=== PATIENT | male | born 1950 | race Caucasian/White ===

== ENCOUNTER 2020-08-06 19:19 | Inpatient (IN) | payer BC, MEDICARE ==
[~2020-08-06] VITALS: Ht 182.9 cm; Wt 123.6 kg
[2020-08-06 19:40] LABS: BASO % 1 % (0-3); EOS # 0.1 x10^3/uL (0.0-0.7); EOS % 2 % (0-3); HEMATOCRIT 41.5 % (39.0-53.0); HEMOGLOBIN 14.2 g/dL (13.0-17.5); LYMPH # 1.4 x10^3/uL (1.0-4.8); LYMPH % 23 % (24-48); MEAN CORPUSCULAR HEMOGLOBIN 32 pg (25-35); MEAN CORPUSCULAR HGB CONC 34 g/dL (31-37); MEAN CORPUSCULAR VOLUME 92 fL (79-100); MONO # 0.5 x10^3/uL (0.0-1.1); MONO % 7 % (0-9); NEUT # 4.3 x10^3/uL (1.8-7.7); NEUT % 68 % (31-73); PLATELET COUNT 208 x10^3/uL (140-400); RED BLOOD COUNT 4.51 x10^6/uL (4.30-5.70); RED CELL DISTRIBUTION WIDTH 13.8 % (11.5-14.5); WHITE BLOOD COUNT 6.4 x10^3/uL (4.0-11.0)
[2020-08-06 19:48] LABS: CALCIUM 9.7 mg/dL (8.5-10.1); GFR 74.1; POTASSIUM 4.2 mmol/L (3.5-5.1)
--- NOTE | 2020-08-06 20:53 | RAD ---
CHEST PA LATERAL INDICATION: chest pain / Spl. Instructions: / History: . COMPARISON STUDY: None. FINDINGS: Lungs: Normal lung volume. No pulmonary mass or consolidation. The tracheobronchial tree and hilar structures are normal. Pleura: No pleural effusion or pneumothorax. Heart and Mediastinum: Cardiomegaly. Tortuous atherosclerotic aorta. Bones: Degenerative changes of the spine. IMPRESSION: No acute cardiopulmonary process. Electronically signed by: Rizwan Wolfe MD (08/06/2020 8:50 PM) [facility]
[2020-08-06] MEDS ORDERED: ASPIRIN CHEWABLE 81 MG TABLET. PO ONE (22:00)
[2020-08-06] MEDS ORDERED: DOCUSATE SODIUM 100 MG CAPSULE. PO PRN (22:00)
[2020-08-06] MEDS ORDERED: ENOXAPARIN 40 MG/0.4 ML SYRINGE. SQ SCH (22:00)
[2020-08-06] MEDS ORDERED: guaiFENesin ORAL 200 MG/10 ML LIQUID. PO PRN (22:00)
[2020-08-06] MEDS ORDERED: ONDANSETRON PF 4 MG/2 ML VIAL. IV PRN (22:00)
[2020-08-06] MEDS ORDERED: ACETAMINOPHEN 325 MG TABLET. PO PRN (22:00)
[2020-08-06 23:55] VITALS: BP 121/84
[2020-08-07] MEDS ORDERED: LISI-334 PO (01:26)
[2020-08-07] MEDS ORDERED: ASPI325T8 PO (01:26)
[2020-08-07] MEDS ORDERED: TEST5GEL TP (01:26)
[2020-08-07] MEDS ORDERED: TRIA1TAB3 PO (01:26)
[2020-08-07 03:08] VITALS: BP 113/71
--- NOTE | 2020-08-07 03:51 | PHYS DOC ---
Past Medical History Past Medical History: Hypertension Past Surgical History: Other Additional Past Surgical Histo: BILATERAL KNEE REPLACEMENTS Smoking Status: Never Smoker Alcohol Use: Occasionally General Adult EDM: Chief Complaint: CHEST PAIN HPI: HPI: Patient is 70-year-old male who presents to the emergency room complaining of substernal chest pain with radiation into his right arm and back that started earlier this afternoon. He states that he laid down and took a nap. When he woke up it was somewhat better. He then realized it was getting worse again and that he was getting progressively more ill. He then called 911 for an ambulance. He denies any diaphoresis, nausea, shortness of breath with this. Review of Systems: Review of Systems: General: Denies fever, chills, sweats, fatigue Eyes: Denies drainage, blurred vision, eye redness HENT: Denies rhinorrhea, sore throat, earache Respiratory: Denies cough, shortness of breath, wheezing Cardiac: Denies edema, palpitations. Reports chest pain GI: Denies abdominal pain, Nausea, vomiting MSK: Denies neck pain. Reports back pain Skin: Denies rash, jaundice Neuro: Denies headache, dizziness Psychiatric: Denies SI/HI Heart Score: HEART Score for Chest Pain: HEART Score for Chest Pain Response (Comments) Value History Highly Suspicious 2 ECG Nonspecific Repolarizatio 1 Age > 65 2 Risk Factors 1 or 2 Risk Factors 1 Troponin >1-<3x Normal Limit 1 Total 7 Risk Factors: Risk Factors: DM, Current or recent (<one month) smoker, HTN, HLP, family history of CAD, obesity. Risk Scores: Score 0 - 3: 2.5% MACE over next 6 weeks - Discharge Home Score 4 - 6: 20.3% MACE over next 6 weeks - Admit for Clinical Observation Score 7 - 10: 72.7% MACE over next 6 weeks - Early Invasive Strategies Allergies: Allergies: Allergies Coded Allergies Type Severity Reaction Last Updated Verified No Known Drug Allergies 08/06/20 No Physical Exam: PE: General: Awake, alert, NAD. Well Nourished, well hydrated. Cooperative HEENT: Atraumatic, EOMI, PERRL, airway patent, moist oral mucosa Neck: Supple, trachea midline Respiratory: CTA bilaterally, normal effort, no wheezing/crackles CV: RRR, no murmur, cap refill <2 GI: Soft, nondistended, nontender, no masses MSK: No obvious deformities Skin: Warm, dry, intact Neuro: A&O x3, speech NL, sensory and motor grossly intact, no focal deficits Psych: Normal affect, normal mood, not suicidal or homicidal Current Patient Data: Labs: Laboratory Tests Test 08/06/20 19:30 08/07/20 00:51 White Blood Count 6.4 x10^3/uL (4.0-11.0) Red Blood Count 4.51 x10^6/uL (4.30-5.70) Hemoglobin 14.2 g/dL (13.0-17.5) Hematocrit 41.5 % (39.0-53.0) Mean Corpuscular Volume 92 fL (79-100) Mean Corpuscular Hemoglobin 32 pg (25-35) Mean Corpuscular Hemoglobin Concent 34 g/dL (31-37) Red Cell Distribution Width 13.8 % (11.5-14.5) Platelet Count 208 x10^3/uL (140-400) Neutrophils (%) (Auto) 68 % (31-73) Lymphocytes (%) (Auto) 23 % (24-48) L Monocytes (%) (Auto) 7 % (0-9) Eosinophils (%) (Auto) 2 % (0-3) Basophils (%) (Auto) 1 % (0-3) Neutrophils # (Auto) 4.3 x10^3/uL (1.8-7.7) Lymphocytes # (Auto) 1.4 x10^3/uL (1.0-4.8) Monocytes # (Auto) 0.5 x10^3/uL (0.0-1.1) Eosinophils # (Auto) 0.1 x10^3/uL (0.0-0.7) Basophils # (Auto) 0.0 x10^3/uL (0.0-0.2) Sodium Level 138 mmol/L (136-145) Potassium Level 4.2 mmol/L (3.5-5.1) Chloride Level 101 mmol/L (98-107) Carbon Dioxide Level 28 mmol/L (21-32) Anion Gap 9 (6-14) Blood Urea Nitrogen 19 mg/dL (8-26) Creatinine 1.0 mg/dL (0.7-1.3) Estimated GFR (Cockcroft-Gault) 74.1 Glucose Level 81 mg/dL (70-99) Calcium Level 9.7 mg/dL (8.5-10.1) Troponin I Quantitative 0.146 ng/mL (0.000-0.055) 1.104 ng/mL (0.000-0.055) Laboratory Tests 08/06/20 19:30 Laboratory Tests 08/06/20 19:30 Vital Signs: Vital Signs Date Time Temp Pulse Resp B/P (MAP) Pulse Ox O2 Delivery O2 Flow Rate FiO2 08/07/20 03:08 98.2 64 19 113/71 (85) 100 Room Air 98.2 EKG: EKG: [] Radiology/Procedures: Radiology/Procedures: [] Course & Med Decision Making: Course & Med Decision Making Pertinent Labs and Imaging studies reviewed. (See chart for details) Patient is a 70 year-old male who presents to the Emergency Room complaining of chest pain with radiation to the back and right arm. History is significant for worsening substernal chest pain. At this time, given patient's risk factors and story there is concern for possible cardiac pathology. EKG was ordered and shows some mild ST depression. At this time there is no signs of STEMI, pericarditis, or unstable arrthymia on EKG. Patient has received aspirin today. CBC, BMP, troponin, CXR were ordered to evaluate for causes of chest pain including ACS, anemia, electrolyte abnormalities that can lead to arrhythmias, PTX, pneumonia, pneumomediastinum. Patient does not have any abdominal tenderness that would suggest pancreaititis or cholecystitis and does not need an abdominal work up at this time. Patient's HEART score is 7 placing the patient at moderate risk. Patient will be admitted for further care and evaluation. Dragon Disclaimer: Dragon Disclaimer: This electronic medical record was generated, in whole or in part, using a voice recognition dictation system. Departure Departure Impression: Primary Impression: Chest pain Disposition: ADMITTED INPATIENT Condition: GOOD Referrals: UNKNOWN PCP NAME (PCP) Justicifation of Admission Dx: Justifications for Admission: Justification of Admission Dx: Yes NEVA NICOLE MD Aug 07, 2020 03:51
[2020-08-07 07:00] VITALS: BP 124/63
[2020-08-07 07:00] LABS: CALCIUM 9.2 mg/dL (8.5-10.1); CREATININE 0.9 mg/dL (0.7-1.3); GFR 83.7; POTASSIUM 3.7 mmol/L (3.5-5.1)
[2020-08-07 07:21] LABS: BASO % 1 % (0-3); EOS # 0.1 x10^3/uL (0.0-0.7); EOS % 2 % (0-3); HEMATOCRIT 40.4 % (39.0-53.0); HEMOGLOBIN 13.7 g/dL (13.0-17.5); LYMPH # 1.4 x10^3/uL (1.0-4.8); LYMPH % 30 % (24-48); MEAN CORPUSCULAR HEMOGLOBIN 31 pg (25-35); MEAN CORPUSCULAR HGB CONC 34 g/dL (31-37); MEAN CORPUSCULAR VOLUME 92 fL (79-100); MONO # 0.4 x10^3/uL (0.0-1.1); MONO % 8 % (0-9); NEUT # 2.7 x10^3/uL (1.8-7.7); NEUT % 60 % (31-73); PLATELET COUNT 187 x10^3/uL (140-400); RED BLOOD COUNT 4.38 x10^6/uL (4.30-5.70); RED CELL DISTRIBUTION WIDTH 13.9 % (11.5-14.5); WHITE BLOOD COUNT 4.6 x10^3/uL (4.0-11.0)
[2020-08-07] MEDS ORDERED: ASPIRIN CHEWABLE 81 MG TABLET. PO SCH (08:00)
--- NOTE | 2020-08-07 08:23 | EKG ---
[facility] [address] [place] [address] Test Date: 2020-08-06 Test Time: 19:23:20 Pat Name: LORETTA DUNCAN Department: Room: Gender: M Ham Doctor: = : 1950 Requested By: NEVA NICOLE Order Number: [id number] Reading MD: Measurements Intervals Holmes Rate: 79 P: -43 DC: 186 QRS: 6 QRSD: 70 T: -3 QT: 354 QTc: 412 Interpretive Statements SINUS RHYTHM R-S TRANSITION ZONE IN V LEADS DISPLACED TO THE RIGHT ST & T ABNORMALITY, CONSIDER INFERIOR ISCHEMIA OR LEFT VENTRICULAR STRAIN ABNORMAL ECG RI6.02 No previous ECG available for comparison
--- NOTE | 2020-08-07 08:50 | PDOC2 ---
WILLIAM MANSFIELD MOLD MOVER 08/07/20 0850: CARDIAC CONSULT DATE OF CONSULT Date of Consult DATE: 08/07/20 TIME: 08:45 REASON FOR CONSULT Reason for Consult: Chest pain REFERRING PHYSICIAN Referring Physician: Dr. Castaneda SOURCE Source: Chart review, Patient HISTORY OF PRESENT ILLNESS HISTORY OF PRESENT ILLNESS This is a 70 yo male who presented secondary to chest pain. Patient reports pain began yesterday morning. Located in high central/right chest. Describes as heaviness. Radiated down his right arm. Took ASA and laid down for a nap. Woke up and pain persisted. Seemed to worsen. Became diaphoretic and slightly dizzy. No shortness of breath, palpitations, or nausea/vomiting. Had call EMS. No recent fevers or illness. No prior h/o CAD. PAST MEDICAL HISTORY Cardiovascular: HTN PAST SURGICAL HISTORY Past Surgical History: Total knee replacement (bilateral ) FAMILY HISTORY Family History: Heart Disease, Hypertension SOCIAL HISTORY Smoke: No ALCOHOL: occassional Drugs: None Lives: with Family ALLERGIES ALLERGIES: Coded Allergies: No Known Drug Allergies (Unverified , 08/06/20) ROS Review of System 14 point ROS conducted with pertinent positives noted above in hPI PHYSICAL EXAM General: Alert, Oriented X3, Cooperative, No acute distress HEENT: Atraumatic, Mucous membr. moist/pink Lungs: Clear to auscultation Heart: Regular rate, Normal S1, Normal S2 Abdomen: Soft, No tenderness Extremities: No edema Skin: No significant lesion Neuro: Normal speech, Sensation intact Psych/Mental Status: Mental status NL, Mood NL MUSCULOSKELETAL: No deformity VITALS/I&O VITALS/I&O: Vital Signs Date Time Temp Pulse Resp B/P (MAP) Pulse Ox O2 Delivery O2 Flow Rate FiO2 08/07/20 07:00 98.1 61 18 124/63 (83) 97 Room Air 98.1 I & O 08/06/20 08/06/20 08/07/20 15:00 23:00 07:00 Intake Total 500 ml Output Total 300 ml Balance 200 ml LABS Lab: Laboratory Tests Test 08/06/20 19:30 08/07/20 00:51 08/07/20 06:00 White Blood Count 6.4 x10^3/uL (4.0-11.0) 4.6 x10^3/uL (4.0-11.0) Red Blood Count 4.51 x10^6/uL (4.30-5.70) 4.38 x10^6/uL (4.30-5.70) Hemoglobin 14.2 g/dL (13.0-17.5) 13.7 g/dL (13.0-17.5) Hematocrit 41.5 % (39.0-53.0) 40.4 % (39.0-53.0) Mean Corpuscular Volume 92 fL (79-100) 92 fL (79-100) Mean Corpuscular Hemoglobin 32 pg (25-35) 31 pg (25-35) Mean Corpuscular Hemoglobin Concent 34 g/dL (31-37) 34 g/dL (31-37) Red Cell Distribution Width 13.8 % (11.5-14.5) 13.9 % (11.5-14.5) Platelet Count 208 x10^3/uL (140-400) 187 x10^3/uL (140-400) Neutrophils (%) (Auto) 68 % (31-73) 60 % (31-73) Lymphocytes (%) (Auto) 23 % (24-48) L 30 % (24-48) Monocytes (%) (Auto) 7 % (0-9) 8 % (0-9) Eosinophils (%) (Auto) 2 % (0-3) 2 % (0-3) Basophils (%) (Auto) 1 % (0-3) 1 % (0-3) Neutrophils # (Auto) 4.3 x10^3/uL (1.8-7.7) 2.7 x10^3/uL (1.8-7.7) Lymphocytes # (Auto) 1.4 x10^3/uL (1.0-4.8) 1.4 x10^3/uL (1.0-4.8) Monocytes # (Auto) 0.5 x10^3/uL (0.0-1.1) 0.4 x10^3/uL (0.0-1.1) Eosinophils # (Auto) 0.1 x10^3/uL (0.0-0.7) 0.1 x10^3/uL (0.0-0.7) Basophils # (Auto) 0.0 x10^3/uL (0.0-0.2) 0.0 x10^3/uL (0.0-0.2) Sodium Level 138 mmol/L (136-145) 138 mmol/L (136-145) Potassium Level 4.2 mmol/L (3.5-5.1) 3.7 mmol/L (3.5-5.1) Chloride Level 101 mmol/L (98-107) 104 mmol/L (98-107) Carbon Dioxide Level 28 mmol/L (21-32) 25 mmol/L (21-32) Anion Gap 9 (6-14) 9 (6-14) Blood Urea Nitrogen 19 mg/dL (8-26) 15 mg/dL (8-26) Creatinine 1.0 mg/dL (0.7-1.3) 0.9 mg/dL (0.7-1.3) Estimated GFR (Cockcroft-Gault) 74.1 83.7 Glucose Level 81 mg/dL (70-99) 89 mg/dL (70-99) Calcium Level 9.7 mg/dL (8.5-10.1) 9.2 mg/dL (8.5-10.1) Troponin I Quantitative 0.146 ng/mL (0.000-0.055) 1.104 ng/mL (0.000-0.055) 1.571 ng/mL (0.000-0.055) Laboratory Tests 08/06/20 19:30 08/07/20 06:00 Laboratory Tests 08/06/20 19:30 08/07/20 06:00 ASSESSMENT/PLAN ASSESSMENT/PLAN 1. Chest pain with typical features 2. NSTEMI; trop highest 1.5 3. Hypertension; controlled 4. Obesity Recommendations Trend trop Lipids, TSH ASA Start heparin gtt Echo to assess LV systolic function Given symptomatology in the setting of NSTEMI, recommend LHC with possible PCI. R/b/a discussed with patient and he is agreeable to proceed. Okay to have light breakfast Supportive care Further pending above ZOE WILKERSON MD 08/07/20 1639: CARDIAC CONSULT ASSESSMENT/PLAN ASSESSMENT/PLAN Pt. seen and examined. Agree with above INSPECTING ENGINEER note. Plan for cardiac cath in a.m. Thanks WILLIAM MANSFIELD APRN Aug 07, 2020 08:50 ZOE WILEKRSON MD Aug 07, 2020 16:39
[2020-08-07 09:22] LABS: CHOLESTEROL/HDL RATIO 3.5
[2020-08-07] MEDS ORDERED: HEPARIN for IV BOLUS 10,000 UNIT/10 ML VIAL. IV ONE (09:45)
[2020-08-07] MEDS ORDERED: HEPARIN for IV BOLUS 10,000 UNIT/10 ML VIAL. IV PRN (09:45)
[2020-08-07] MEDS ORDERED: HEPARIN 25,000UTS/250ML PREMIX 250 ML IV PRN (09:45)
[2020-08-07] MEDS ORDERED: ANTI-COAG MONITOR BY PHARMACY. MC PRN (10:00)
[2020-08-07 10:39] VITALS: BP 129/76
--- NOTE | 2020-08-07 10:44 | PDOC1 ---
"History and Physical Date of Admission Date of Admission 08/07/2020 Identification/Chief Complaint Chief Complaint |My chest hurts Source Source: Chart review, Patient History of Present Illness History of Present Illness Patient is a 70 year old male with past medical history of hypertension who was in his usual state of health until the day of his admission when he presented precordaiol pain that he describes as a pressure like sensation with no radiation to the neck or arms. Patient denies cough sputum production no fever or chills, no sensation of impending doom associated with the discomfort. Patient denies shortnes of breath no PND, no palpitations, no nausea vomiting or diarrhea. he denies having similar symptoms in the past, patient denies recent dietary transgression, no recent illness and no sick contacts have been reported. At the time of this note the patient is in no apparent distress, no further chest pain has been reported, plan of care discussed in detail. All concerns addressed to the best of my abilities. Past Medical History Cardiovascular: HTN Past Surgical History Past Surgical History: Total knee replacement (bilateral ) Family History Family History: Heart Disease, Hypertension Social History Smoke: No ALCOHOL: occassional Drugs: None Current Problem List Problem List Problems Medical Problems: (1) Chest pain Status: Acute Current Medications Current Medications Current Medications Medications (Trade) Dose Ordered Sig/Yvette Start Time Stop Time Status Last Admin Dose Admin Acetaminophen (Tylenol) 650 mg PRN Q4HRS PRN 08/06/20 22:00 Aspirin (Aspirin Chewable) 81 mg [id number] 08/07/20 08:00 08/07/20 08:46 81 MG Docusate Sodium (Colace) 100 mg PRN BID PRN 08/06/20 22:00 Enoxaparin Sodium (Lovenox 40mg Syringe) 40 mg Q24H 08/06/20 22:00 08/07/20 09:45 DC Guaifenesin (Robitussin) 200 mg PRN Q4HRS PRN 08/06/20 22:00 Heparin Sodium (Porcine) (Heparin Sodium) 3,250 unit PRN Q6HRS PRN 08/07/20 09:45 Heparin Sodium/ Dextrose 250 ml @ 0 mls/hr CONT PRN 08/07/20 09:45 08/07/20 10:16 15.7 MLS/HR Info (Anti-Coagulation Monitoring By Pharmacy) 1 each PRN DAILY PRN 08/07/20 10:00 Morphine Sulfate (Morphine Sulfate) 2 mg PRN Q2HR PRN 08/06/20 22:00 Nitroglycerin (Nitrostat) 0.4 mg PRN Q5MIN PRN 08/06/20 22:00 Ondansetron HCl (Zofran) 4 mg PRN Q4HRS PRN 08/06/20 22:00 Allergies Allergies Allergies Coded Allergies Type Severity Reaction Last Updated Verified No Known Drug Allergies 08/06/20 No ROS Review of System CONSTITUTIONAL: No fever or chills EYES: No recent changes SKIN: No rash or itching CARDIOVASCULAR: No chest pain, syncope, palpitations, or edema RESPIRATORY: No SOB or cough GASTROINTESTINAL: No nausea, vomiting or abdominal pain NEUROLOGICAL: No headaches or weakness ENDOCRINE: No cold or heat intolerance GENITOURINARY: No urgency or frequency of urination MUSCULOSKELETAL: No back pain or joint pain LYMPHATICS: No enlarged lymph nodes PSYCHIATRIC: No anxiety or depression Physical Exam Physical Exam GEN.: No apparent distress. Alert and oriented. HEENT: Head is normocephalic, atraumatic NECK: Supple. LUNGS: Clear to auscultation. HEART: RRR, S1, S2 present. Peripheral pulses intact ABDOMEN: Soft, nontender. Positive bowel sounds. EXTREMITIES: Without any cyanosis. NEUROLOGIC: Normal speech, normal tone PSYCHIATRIC: Normal affect, normal mood. SKIN: No ulcerations Vitals Vitals Vital Signs Date Time Temp Pulse Resp B/P (MAP) Pulse Ox O2 Delivery O2 Flow Rate FiO2 08/07/20 08:00 Room Air 08/07/20 07:00 98.1 61 18 124/63 (83) 97 98.1 Labs Labs Laboratory Tests Test 08/06/20 19:30 08/07/20 00:51 08/07/20 06:00 White Blood Count 6.4 x10^3/uL (4.0-11.0) 4.6 x10^3/uL (4.0-11.0) Red Blood Count 4.51 x10^6/uL (4.30-5.70) 4.38 x10^6/uL (4.30-5.70) Hemoglobin 14.2 g/dL (13.0-17.5) 13.7 g/dL (13.0-17.5) Hematocrit 41.5 % (39.0-53.0) 40.4 % (39.0-53.0) Mean Corpuscular Volume 92 fL (79-100) 92 fL (79-100) Mean Corpuscular Hemoglobin 32 pg (25-35) 31 pg (25-35) Mean Corpuscular Hemoglobin Concent 34 g/dL (31-37) 34 g/dL (31-37) Red Cell Distribution Width 13.8 % (11.5-14.5) 13.9 % (11.5-14.5) Platelet Count 208 x10^3/uL (140-400) 187 x10^3/uL (140-400) Neutrophils (%) (Auto) 68 % (31-73) 60 % (31-73) Lymphocytes (%) (Auto) 23 % (24-48) 30 % (24-48) Monocytes (%) (Auto) 7 % (0-9) 8 % (0-9) Eosinophils (%) (Auto) 2 % (0-3) 2 % (0-3) Basophils (%) (Auto) 1 % (0-3) 1 % (0-3) Neutrophils # (Auto) 4.3 x10^3/uL (1.8-7.7) 2.7 x10^3/uL (1.8-7.7) Lymphocytes # (Auto) 1.4 x10^3/uL (1.0-4.8) 1.4 x10^3/uL (1.0-4.8) Monocytes # (Auto) 0.5 x10^3/uL (0.0-1.1) 0.4 x10^3/uL (0.0-1.1) Eosinophils # (Auto) 0.1 x10^3/uL (0.0-0.7) 0.1 x10^3/uL (0.0-0.7) Basophils # (Auto) 0.0 x10^3/uL (0.0-0.2) 0.0 x10^3/uL (0.0-0.2) Sodium Level 138 mmol/L (136-145) 138 mmol/L (136-145) Potassium Level 4.2 mmol/L (3.5-5.1) 3.7 mmol/L (3.5-5.1) Chloride Level 101 mmol/L (98-107) 104 mmol/L (98-107) Carbon Dioxide Level 28 mmol/L (21-32) 25 mmol/L (21-32) Anion Gap 9 (6-14) 9 (6-14) Blood Urea Nitrogen 19 mg/dL (8-26) 15 mg/dL (8-26) Creatinine 1.0 mg/dL (0.7-1.3) 0.9 mg/dL (0.7-1.3) Estimated GFR (Cockcroft-Gault) 74.1 83.7 Glucose Level 81 mg/dL (70-99) 89 mg/dL (70-99) Calcium Level 9.7 mg/dL (8.5-10.1) 9.2 mg/dL (8.5-10.1) Troponin I Quantitative 0.146 ng/mL (0.000-0.055) 1.104 ng/mL (0.000-0.055) 1.571 ng/mL (0.000-0.055) Triglycerides Level 115 mg/dL (0-150) Cholesterol Level 151 mg/dL (0-200) LDL Cholesterol, Calculated 85 mg/dL (0-100) VLDL Cholesterol, Calculated 23 mg/dL (0-40) Non-HDL Cholesterol Calculated 108 mg/dL (0-129) HDL Cholesterol 43 mg/dL (40-60) Cholesterol/HDL Ratio 3.5 Thyroid Stimulating Hormone (TSH) 1.578 uIU/mL (0.358-3.74) Laboratory Tests Test 08/06/20 19:30 08/07/20 00:51 08/07/20 06:00 White Blood Count 6.4 x10^3/uL (4.0-11.0) 4.6 x10^3/uL (4.0-11.0) Red Blood Count 4.51 x10^6/uL (4.30-5.70) 4.38 x10^6/uL (4.30-5.70) Hemoglobin 14.2 g/dL (13.0-17.5) 13.7 g/dL (13.0-17.5) Hematocrit 41.5 % (39.0-53.0) 40.4 % (39.0-53.0) Mean Corpuscular Volume 92 fL (79-100) 92 fL (79-100) Mean Corpuscular Hemoglobin 32 pg (25-35) 31 pg (25-35) Mean Corpuscular Hemoglobin Concent 34 g/dL (31-37) 34 g/dL (31-37) Red Cell Distribution Width 13.8 % (11.5-14.5) 13.9 % (11.5-14.5) Platelet Count 208 x10^3/uL (140-400) 187 x10^3/uL (140-400) Neutrophils (%) (Auto) 68 % (31-73) 60 % (31-73) Lymphocytes (%) (Auto) 23 % (24-48) 30 % (24-48) Monocytes (%) (Auto) 7 % (0-9) 8 % (0-9) Eosinophils (%) (Auto) 2 % (0-3) 2 % (0-3) Basophils (%) (Auto) 1 % (0-3) 1 % (0-3) Neutrophils # (Auto) 4.3 x10^3/uL (1.8-7.7) 2.7 x10^3/uL (1.8-7.7) Lymphocytes # (Auto) 1.4 x10^3/uL (1.0-4.8) 1.4 x10^3/uL (1.0-4.8) Monocytes # (Auto) 0.5 x10^3/uL (0.0-1.1) 0.4 x10^3/uL (0.0-1.1) Eosinophils # (Auto) 0.1 x10^3/uL (0.0-0.7) 0.1 x10^3/uL (0.0-0.7) Basophils # (Auto) 0.0 x10^3/uL (0.0-0.2) 0.0 x10^3/uL (0.0-0.2) Sodium Level 138 mmol/L (136-145) 138 mmol/L (136-145) Potassium Level 4.2 mmol/L (3.5-5.1) 3.7 mmol/L (3.5-5.1) Chloride Level 101 mmol/L (98-107) 104 mmol/L (98-107) Carbon Dioxide Level 28 mmol/L (21-32) 25 mmol/L (21-32) Anion Gap 9 (6-14) 9 (6-14) Blood Urea Nitrogen 19 mg/dL (8-26) 15 mg/dL (8-26) Creatinine 1.0 mg/dL (0.7-1.3) 0.9 mg/dL (0.7-1.3) Estimated GFR (Cockcroft-Gault) 74.1 83.7 Glucose Level 81 mg/dL (70-99) 89 mg/dL (70-99) Calcium Level 9.7 mg/dL (8.5-10.1) 9.2 mg/dL (8.5-10.1) Troponin I Quantitative 0.146 ng/mL (0.000-0.055) 1.104 ng/mL (0.000-0.055) 1.571 ng/mL (0.000-0.055) Triglycerides Level 115 mg/dL (0-150) Cholesterol Level 151 mg/dL (0-200) LDL Cholesterol, Calculated 85 mg/dL (0-100) VLDL Cholesterol, Calculated 23 mg/dL (0-40) Non-HDL Cholesterol Calculated 108 mg/dL (0-129) HDL Cholesterol 43 mg/dL (40-60) Cholesterol/HDL Ratio 3.5 Thyroid Stimulating Hormone (TSH) 1.578 uIU/mL (0.358-3.74) VTE Prophylaxis Ordered VTE Prophylaxis Devices: Yes VTE Pharmacological Prophylaxi: Yes Assessment/Plan Assessment/Plan Chest pain with elevated troponin. NSTEMI currently asymptomatic, cardiology will do a PCI in the am Hypertension Borderline morbid obesity with BMI of 39 Plan: heparin drip continue home medications cardiac cath as per clinical education consultant. DVT prophylaxis: patient is on heparin. Justifications for Admission Other Justification LOW BELLA MD Aug 07, 2020 10:44"
[2020-08-07] MEDS: TRIAMTERENE/HCTZ 37.5/25MG TABLET. PO SCH (12:05)
[2020-08-07] MEDS: LISINOPRIL 20 MG TABLET PO SCH (12:05)
[2020-08-07 14:55] VITALS: BP 119/77
--- NOTE | 2020-08-07 15:13 | NUR ---
SS following for discharge planning. SS reviewed pt chart and discussed with pt RN. Pt is from home with spouse and is currently on room air. Pt having heart cath tomorrow. SS will continue to follow for discharge planning.
[2020-08-07] MEDS: NITROGLYCERIN SUBLINGUAL 0.4 MG BOTTLE OF 25. SL PRN ×2 (15:57→22:32)
--- NOTE | 2020-08-07 18:06 | CARD ---
MR#: [id number] Date of Study: 08/07/2020 Ordering Physician: WILLIAM MANSFIELD, Referring Physician: WILLIAM MANSFIELD, Tech: Sue Jiménez [facility] APPROVED REPORT EXAM: Two-dimensional and M-mode echocardiogram with Doppler and color Doppler. Other Information Quality : Fair INDICATION Acute Myocardial Infarction 2D DIMENSIONS Left Atrium(2D)3.9 (1.6-4.0cm)IVSd0.8 (0.7-1.1cm) Aortic Root(2D)2.6 (2.0-3.7cm)LVDd4.6 (3.9-5.9cm) LVOT Diameter2.1 (1.8-2.4cm)PWd0.9 (0.7-1.1cm) LVDs3.7 (2.5-4.0cm)FS (%) 30.0 % SV38.2 ml Aortic Valve AoV Peak Jonh.124.4cm/sAoV VTI21.3cm AO Peak GR.6.2mmHgLVOT VTI 18.65cm AO Mean GR.3mmHgAVA (VTI)3.10cm2 Mitral Valve MV E Wglbfhjo66.0cm/sMV DECEL [id number] MV A Tenoldew23.0cm/sE/A Ratio0.6 TDI Lateral E' P. V5.73cm/sMedial E' P. V7.27cm/s E/Lateral E'9.4E/Medial E'7.4 Pulmonary Vein S1 Refkhaoe22.2cm/sS2 Lfccbbgm41.56cm/s D2 Tpzaucfy58.6cm/s LEFT VENTRICLE The left ventricle is normal size. There is normal left ventricular wall thickness. The left ventricu lar ejection fraction is within normal range. The Ejection Fraction is 55-60%. There is borderline hy pokinesis in the basal inferior wall. Transmitral Doppler flow pattern is Grade I-abnormal relaxation pattern. RIGHT VENTRICLE The right ventricle is normal size. The right ventricular systolic function is normal. ATRIA The left atrium size is normal. The right atrium size is normal. The interatrial septum is intact wit h no evidence for an atrial septal defect or patent foramen ovale as noted on 2-D or Doppler imaging. AORTIC VALVE The aortic valve is normal in structure and function. Doppler and Color Flow revealed no significant aortic regurgitation. There is no significant aortic valvular stenosis. MITRAL VALVE The mitral valve is normal in structure and function. There is no evidence of mitral valve prolapse. There is no mitral valve stenosis. Doppler and Color Flow revealed trace mitral valve regurgitation. TRICUSPID VALVE The tricuspid valve is normal in structure and function. Doppler and Color Flow revealed no tricuspid valve regurgitation noted. There is no tricuspid valve stenosis. PULMONIC VALVE The pulmonic valve is not well visualized. Doppler and Color Flow revealed no pulmonic valvular regur gitation. There is no pulmonic valvular stenosis. GREAT VESSELS The aortic root is normal in size. The ascending aorta is not well seen. The IVC is normal in size an d collapses >50% with inspiration. PERICARDIAL EFFUSION There is no evidence of significant pericardial effusion. Critical Notification Critical Value: No <Conclusion> The left ventricle is normal size. The left ventricular ejection fraction is within normal range. The Ejection Fraction is 55-60%. There is borderline hypokinesis in the basal inferior wall. There is no significant aortic valvular stenosis. Doppler and Color Flow revealed no significant aortic regurgitation. Doppler and Color Flow revealed trace mitral valve regurgitation. Doppler and Color Flow revealed no tricuspid valve regurgitation. Signed by : Luis Brumfield MD Electronically Approved : 08/07/2020 18:06:06
[2020-08-07 19:00] VITALS: BP 115/75
[2020-08-07] MEDS: MORPHINE SULFATE 2 MG/ML VIAL. IV PRN (22:32)
[2020-08-07 23:16] VITALS: BP 138/81
[2020-08-08] VITALS (13 sets, daily range): BP systolic 100–141; BP diastolic 62–99
[2020-08-08] MEDS: MORPHINE SULFATE 2 MG/ML VIAL. IV PRN (03:39)
[2020-08-08 04:19] LABS: HEMATOCRIT 39.6 % (39.0-53.0); HEMOGLOBIN 13.7 g/dL (13.0-17.5); RED BLOOD COUNT 4.34 x10^6/uL (4.30-5.70); RED CELL DISTRIBUTION WIDTH 13.8 % (11.5-14.5); WHITE BLOOD COUNT 5.9 x10^3/uL (4.0-11.0)
[2020-08-08] MEDS ORDERED: LIDOCAINE 1% PF 2 ML VIAL. ONE (07:49)
[2020-08-08] MEDS ORDERED: IOHEXOL 300 MG/ML 100ML VIAL. ONE (07:49)
[2020-08-08] MEDS ORDERED: HEPARIN for ARTERIAL LINE 1,500 ML ONE (07:49)
[2020-08-08] MEDS: ASPIRIN 325 MG TABLET PO SCH (08:15)
[2020-08-08] MEDS ORDERED: VERAPAMIL 5 MG/2 ML VIAL. ONE (08:42)
[2020-08-08] MEDS ORDERED: fentaNYL PF VIAL 100 MCG/2 ML VIAL ONE (08:42)
[2020-08-08] MEDS ORDERED: HEPARIN for IV BOLUS 10,000 UNIT/10 ML VIAL. ONE (08:42)
[2020-08-08] MEDS ORDERED: MIDAZOLAM HCL/PF 2 MG/2 ML VIAL. ONE (08:42)
[2020-08-08] MEDS ORDERED: NITROGLYCERIN 200 MCG/2 ML SYRINGE FOR CATH/VASC LAB. ONE ×2 (08:42→09:33)
[2020-08-08] MEDS ORDERED: NITROGLYCERIN SUBLINGUAL 0.4 MG BOTTLE OF 25. SL ONE (08:58)
[2020-08-08] MEDS ORDERED: TIROFIBAN 5MG -0.9% NS 100 ML IV ONE (09:08)
[2020-08-08] MEDS ORDERED: TIROFIBAN 5MG -0.9% NS 100 ML IV PRN (09:15)
[2020-08-08] MEDS ORDERED: HEPARIN for IV BOLUS 10,000 UNIT/10 ML VIAL. IART ONE (09:30)
[2020-08-08] MEDS ORDERED: IOHEXOL 300 MG/ML 100ML VIAL. IART ONE (09:30)
[2020-08-08] MEDS ORDERED: PRASUGREL 10 MG TABLET. PO ONE (09:30)
[2020-08-08] MEDS ORDERED: VERAPAMIL 5 MG/2 ML VIAL. IART ONE (09:30)
[2020-08-08] MEDS ORDERED: LIDOCAINE 1% PF 2 ML VIAL. INJ ONE (09:30)
[2020-08-08] MEDS ORDERED: MIDAZOLAM HCL/PF 2 MG/2 ML VIAL. IV ONE (09:30)
[2020-08-08] MEDS ORDERED: NITROGLYCERIN 200 MCG/2 ML SYRINGE FOR CATH/VASC LAB. IART ONE (09:30)
[2020-08-08] MEDS ORDERED: NITROGLYCERIN 200 MCG/2 ML SYRINGE FOR CATH/VASC LAB. ICAR ONE (09:30)
[2020-08-08] MEDS ORDERED: IV NORMAL SALINE 1000ML BAG 1,000 ML IV ONE (09:30)
[2020-08-08] MEDS ORDERED: HEPARIN for IV BOLUS 10,000 UNIT/10 ML VIAL. IV ONE (09:30)
[2020-08-08] MEDS ORDERED: fentaNYL PF VIAL 100 MCG/2 ML VIAL IV ONE (09:30)
[2020-08-08] MEDS ORDERED: PRASUGREL 10 MG TABLET. ONE (09:33)
[2020-08-08] MEDS: NITROGLYCERIN SUBLINGUAL 0.4 MG BOTTLE OF 25. SL PRN (09:38)
--- NOTE | 2020-08-08 10:02 | CARD ---
MR#: [id number] Date of Study: 08/08/2020 Ordering Physician: WILLIAM MANSFIELD, Referring Physician: WILLIAM MANSFIELD, Tech: MARITA MACHUCA RTR APPROVED REPORT Technologist: MARITA MACHUCA RTR Nurse: Mis Eng R.N. Procedure(s) performed: MODERATE SEDATION TIME: 50 MINUTES FLUORO TIME: 11.1 MIN DOSE: 154 GYCM2 CONTRAST: 100CC OMNI 300 LHC, Coronary angiography Complex PCI of the LCx. HISTORY The patient is a 70 year-old male with a history of : hypertension, dyslipidemia. INDICATION The indication(s) include : non-STEMI . [facility] Clinical Frailty Scale [facility] Clinical Frailty Scale: Managing Well Heart Failure Heart Failure: No PROCEDURE NARRATIVE Clinical information: 70-year-old man who presents to the hospital in the setting of angina and NSTEMI. Informed consent: Written informed consent was obtained from the patient after adequate discussion of the risks and james efits of the procedure. Procedure details: ACCESS: The right wrist was prepped and draped in usual sterile fashion. Under 1% lidocaine local anesthesia a 6 [place]yan Terumo sheath was placed in the right radial artery via the Seldinger technique. DIAGNOSTIC ANGIOGRAPHY: Right and left coronary arteries were engaged with a 6 Kenyan TIG catheter. Diagnostic angiography i n multiple views were obtained. Next, the catheter was placed in the left ventricle and a LVEDP was measured. A pullback was performed. All catheters were exchanged over J-tip guidewire. FINDINGS: ======= Aorta: 110/80 LVEDP: 15 mmHg Left ventriculogram: Deferred due to known EF by echo of 55%. Coronary angiography: LM: Large caliber vessel with normal angiographic appearance LAD: Large caliber vessel with a proximal 40% stenosis. D1: Moderate caliber vessel with an ostial 50% stenosis. LCX: Large caliber non-dominant vessel with mild luminal irregularities. OM1: Moderate caliber vessel with a proximal to mid subtotal occlusion. RCA: Large caliber dominant vessel with mild luminal irregularities RPDA: Moderate caliber vessel with mild luminal irregularities. INTERVENTIONAL TECHNIQUE: Heparin and tirofiban were used for anticoagulation. Through a 6 Kenyan EBU 3.75 guide catheter a 0. 014 inch pro-water wire was advanced to the distal obtuse marginal. Next, balloon angioplasty was pe rformed with a 2.5 x 12 mm balloon. The lesion was then stented with a 3.0 x 22 mm resolute stent an d postdilated with a 3 mm noncompliant balloon at 16 jaky. Final angiography demonstrated excellent s tent expansion with VELMA-3 flow and no evidence of guidewire related complications. This case was complex due to significant subclavian tortuosity and significant vessel tortuosity in t he setting of a high risk non-ST elevation OR. At case completion the patient received Prasugrel 60 mg load. CLOSURE: At case completion the right radial sheath was removed and a Terumo radial band was applied with 11 m L of air. Hemostasis was achieved. COMPLICATIONS: No acute complications noted VELMA Flow VELMA Flow (Pre-Intervention): VELMA-0 VELMA Flow (Post-Intervention): VELMA-3 Conclusion 1. Normal left-sided filling pressures. 2. Two-vessel coronary artery disease 3. Successful complex PCI of the left circumflex with implantation of a 3.0 x 22 mm resolute drug-el uting stent. Recommendations 1. Aspirin 81 mg daily indefinitely 2. Prasugrel 10 mg daily for 1 full year 3. Aggressive risk factor modification and cardiac rehabilitation. Signed by : Simon Montoya, Electronically Approved : 08/08/2020 10:02:08
[2020-08-08] MEDS: LISINOPRIL 20 MG TABLET PO SCH (11:56)
[2020-08-08] MEDS: TRIAMTERENE/HCTZ 37.5/25MG TABLET. PO SCH (11:56)
--- NOTE | 2020-08-08 12:34 | NUR ---
SS following up with discharge planning. SS reviewed pt chart and discussed with pt RN. Pt is currently on room air. Pt having heart cath today. Possible discharge to home tomorrow. SS will continue to follow for discharge planning.
--- NOTE | 2020-08-08 13:51 | PDOC ---
PROGRESS NOTES Date of Service: DATE: 08/08/20 TIME: 13:48 Chief Complaint Chief Complaint Chest pain with elevated troponin. ACS confirmed with PCI status post stent placement. Two-vessel coronary artery disease Successful complex PCI of the left circumflex with implantation of a 3.0 x 22 mm resolute drug-eluting stent. NSTEMI Hypertension Borderline morbid obesity with BMI of 39 History of Present Illness History of Present Illness History of Present Illness Patient is a 70 year old male with past medical history of hypertension who was in his usual state of health until the day of his admission when he presented precordaiol pain that he describes as a pressure like sensation with no radiation to the neck or arms. Patient denies cough sputum production no fever or chills, no sensation of impending doom associated with the discomfort. Patient denies shortnes of breath no PND, no palpitations, no nausea vomiting or diarrhea. he denies having similar symptoms in the past, patient denies recent dietary transgression, no recent illness and no sick contacts have been reported. At the time of this note the patient is in no apparent distress, no further chest pain has been reported, plan of care discussed in detail. All concerns addressed to the best of my abilities. 08/08: No acute events reported overnight, case discussed with nursing staff patient in no acute distress no complaints during my visit PCI results was noted, reassurance provided to the patient Vitals Vitals Vital Signs Date Time Temp Pulse Resp B/P (MAP) Pulse Ox O2 Delivery O2 Flow Rate FiO2 08/08/20 12:25 98 Room Air 2.0 08/08/20 11:56 62 115/82 08/08/20 10:50 97.6 16 97.6 Physical Exam General: Alert, Oriented X3, Cooperative, No acute distress Heart: Regular rate, Normal S1, Normal S2 Lungs: Clear Abdomen: Soft, No tenderness Extremities: No edema Skin: No significant lesion Labs LABS Laboratory Tests Test 08/07/20 15:50 08/07/20 21:51 08/08/20 04:08 08/08/20 09:05 Heparin Anti-Xa Act, Unfractionated 0.72 IU/mL (0.30-0.70) 0.53 IU/mL (0.30-0.70) 0.57 IU/mL (0.30-0.70) White Blood Count 5.9 x10^3/uL (4.0-11.0) Red Blood Count 4.34 x10^6/uL (4.30-5.70) Hemoglobin 13.7 g/dL (13.0-17.5) Hematocrit 39.6 % (39.0-53.0) Mean Corpuscular Volume 91 fL (79-100) Mean Corpuscular Hemoglobin 32 pg (25-35) Mean Corpuscular Hemoglobin Concent 35 g/dL (31-37) Red Cell Distribution Width 13.8 % (11.5-14.5) Platelet Count 191 x10^3/uL (140-400) Activated Clotting Time 209 sec (92-181) Assessment and Plan Assessmemt and Plan Problems Medical Problems: (1) Chest pain Status: Acute Comment Review of Relevant I have reviewed the following items maría (where applicable) has been applied. Labs Laboratory Tests Test 08/06/20 19:30 08/07/20 00:51 08/07/20 06:00 08/07/20 15:50 White Blood Count 6.4 x10^3/uL (4.0-11.0) 4.6 x10^3/uL (4.0-11.0) Red Blood Count 4.51 x10^6/uL (4.30-5.70) 4.38 x10^6/uL (4.30-5.70) Hemoglobin 14.2 g/dL (13.0-17.5) 13.7 g/dL (13.0-17.5) Hematocrit 41.5 % (39.0-53.0) 40.4 % (39.0-53.0) Mean Corpuscular Volume 92 fL (79-100) 92 fL (79-100) Mean Corpuscular Hemoglobin 32 pg (25-35) 31 pg (25-35) Mean Corpuscular Hemoglobin Concent 34 g/dL (31-37) 34 g/dL (31-37) Red Cell Distribution Width 13.8 % (11.5-14.5) 13.9 % (11.5-14.5) Platelet Count 208 x10^3/uL (140-400) 187 x10^3/uL (140-400) Neutrophils (%) (Auto) 68 % (31-73) 60 % (31-73) Lymphocytes (%) (Auto) 23 % (24-48) 30 % (24-48) Monocytes (%) (Auto) 7 % (0-9) 8 % (0-9) Eosinophils (%) (Auto) 2 % (0-3) 2 % (0-3) Basophils (%) (Auto) 1 % (0-3) 1 % (0-3) Neutrophils # (Auto) 4.3 x10^3/uL (1.8-7.7) 2.7 x10^3/uL (1.8-7.7) Lymphocytes # (Auto) 1.4 x10^3/uL (1.0-4.8) 1.4 x10^3/uL (1.0-4.8) Monocytes # (Auto) 0.5 x10^3/uL (0.0-1.1) 0.4 x10^3/uL (0.0-1.1) Eosinophils # (Auto) 0.1 x10^3/uL (0.0-0.7) 0.1 x10^3/uL (0.0-0.7) Basophils # (Auto) 0.0 x10^3/uL (0.0-0.2) 0.0 x10^3/uL (0.0-0.2) Sodium Level 138 mmol/L (136-145) 138 mmol/L (136-145) Potassium Level 4.2 mmol/L (3.5-5.1) 3.7 mmol/L (3.5-5.1) Chloride Level 101 mmol/L (98-107) 104 mmol/L (98-107) Carbon Dioxide Level 28 mmol/L (21-32) 25 mmol/L (21-32) Anion Gap 9 (6-14) 9 (6-14) Blood Urea Nitrogen 19 mg/dL (8-26) 15 mg/dL (8-26) Creatinine 1.0 mg/dL (0.7-1.3) 0.9 mg/dL (0.7-1.3) Estimated GFR (Cockcroft-Gault) 74.1 83.7 Glucose Level 81 mg/dL (70-99) 89 mg/dL (70-99) Calcium Level 9.7 mg/dL (8.5-10.1) 9.2 mg/dL (8.5-10.1) Troponin I Quantitative 0.146 ng/mL (0.000-0.055) 1.104 ng/mL (0.000-0.055) 1.571 ng/mL (0.000-0.055) Triglycerides Level 115 mg/dL (0-150) Cholesterol Level 151 mg/dL (0-200) LDL Cholesterol, Calculated 85 mg/dL (0-100) VLDL Cholesterol, Calculated 23 mg/dL (0-40) Non-HDL Cholesterol Calculated 108 mg/dL (0-129) HDL Cholesterol 43 mg/dL (40-60) Cholesterol/HDL Ratio 3.5 Thyroid Stimulating Hormone (TSH) 1.578 uIU/mL (0.358-3.74) Heparin Anti-Xa Act, Unfractionated 0.72 IU/mL (0.30-0.70) Test 08/07/20 21:51 08/08/20 04:08 08/08/20 09:05 Heparin Anti-Xa Act, Unfractionated 0.53 IU/mL (0.30-0.70) 0.57 IU/mL (0.30-0.70) White Blood Count 5.9 x10^3/uL (4.0-11.0) Red Blood Count 4.34 x10^6/uL (4.30-5.70) Hemoglobin 13.7 g/dL (13.0-17.5) Hematocrit 39.6 % (39.0-53.0) Mean Corpuscular Volume 91 fL (79-100) Mean Corpuscular Hemoglobin 32 pg (25-35) Mean Corpuscular Hemoglobin Concent 35 g/dL (31-37) Red Cell Distribution Width 13.8 % (11.5-14.5) Platelet Count 191 x10^3/uL (140-400) Activated Clotting Time 209 sec (92-181) Laboratory Tests Test 08/07/20 15:50 08/07/20 21:51 08/08/20 04:08 08/08/20 09:05 Heparin Anti-Xa Act, Unfractionated 0.72 IU/mL (0.30-0.70) 0.53 IU/mL (0.30-0.70) 0.57 IU/mL (0.30-0.70) White Blood Count 5.9 x10^3/uL (4.0-11.0) Red Blood Count 4.34 x10^6/uL (4.30-5.70) Hemoglobin 13.7 g/dL (13.0-17.5) Hematocrit 39.6 % (39.0-53.0) Mean Corpuscular Volume 91 fL (79-100) Mean Corpuscular Hemoglobin 32 pg (25-35) Mean Corpuscular Hemoglobin Concent 35 g/dL (31-37) Red Cell Distribution Width 13.8 % (11.5-14.5) Platelet Count 191 x10^3/uL (140-400) Activated Clotting Time 209 sec (92-181) Medications Current Medications Nitroglycerin (Nitrostat) 0.4 mg PRN Q5MIN PRN SL CHEST PAIN Last administered on 08/08/20at 09:38; Start 08/06/20 at 22:00 Aspirin (Aspirin Chewable) 81 mg 1X ONCE PO ; Start 08/06/20 at 22:00; Stop 08/06/20 at 22:04; Status DC Aspirin (Aspirin Chewable) 81 mg DAILYWBKFT PO Last administered on 08/07/20at 08:46; Start 08/07/20 at 08:00; Stop 08/07/20 at 10:39; Status DC Ondansetron HCl (Zofran) 4 mg PRN Q4HRS PRN IV NAUSEA/VOMITING; Start 08/06/20 at 22:00 Acetaminophen (Tylenol) 650 mg PRN Q4HRS PRN PO TEMP OVER 100.4F OR MILD PAIN; Start 08/06/20 at 22:00 Docusate Sodium (Colace) 100 mg PRN BID PRN PO HARD STOOLS; Start 08/06/20 at 22:00 Guaifenesin (Robitussin) 200 mg PRN Q4HRS PRN PO COUGH; Start 08/06/20 at 22:00 Enoxaparin Sodium (Lovenox 40mg Syringe) 40 mg Q24H SQ ; Start 08/06/20 at 22:00; Stop 08/07/20 at 09:45; Status DC Morphine Sulfate (Morphine Sulfate) 2 mg PRN Q2HR PRN IV PAIN Last administered on 08/08/20at 03:39; Start 08/06/20 at 22:00 Heparin Sodium (Porcine) (Heparin Sodium) 3,900 unit 1X ONCE IV Last ad ministered on 08/07/20at 10:17; Start 08/07/20 at 09:45; Stop 08/07/20 at 09:46; Status DC Heparin Sodium/ Dextrose 250 ml @ 0 mls/hr CONT PRN IV PER PROTOCOL Last administered on 08/07/20at 10:16; Start 08/07/20 at 09:45 Heparin Sodium (Porcine) (Heparin Sodium) 3,250 unit PRN Q6HRS PRN IV FOR UFH LEVEL LESS THAN 0.2; Start 08/07/20 at 09:45 Info (Anti-Coagulation Monitoring By Pharmacy) 1 each PRN DAILY PRN MC SEE COMMENTS; Start 08/07/20 at 10:00 Aspirin (Cielo Aspirin) 325 mg DAILY PO Last administered on 08/08/20at 08:15; Start 08/08/20 at 09:00 Lisinopril (Prinivil) 20 mg DAILY PO Last administered on 08/08/20at 11:56; Start 08/07/20 at 11:00 Triamterene/HCTZ (Maxzide 37.5/ 25mg) 1 tab DAILY PO Last administered on 08/08/20at 11:56; Start 08/07/20 at 11:00 Lidocaine HCl (Xylocaine-Mpf 1% 2ml Vial) 2 ml STK-MED ONCE .ROUTE ; Start 08/08/20 at 07:49; Stop 08/08/20 at 07:50; Status DC Iohexol (Omnipaque 300 Mg/ml) 100 ml STK-MED ONCE .ROUTE ; Start 08/08/20 at 07:49; Stop 08/08/20 at 07:50; Status DC Heparin Sodium/ Sodium Chloride 1,500 ml @ As Directed STK-MED ONCE .ROUTE ; Start 08/08/20 at 07:49; Stop 08/08/20 at 07:50; Status DC Fentanyl Citrate (Fentanyl 2ml Vial) 100 mcg STK-MED ONCE .ROUTE ; Start 08/08/20 at 08:42; Stop 08/08/20 at 08:42; Status DC Midazolam HCl (Versed) 2 mg STK-MED ONCE .ROUTE ; Start 08/08/20 at 08:42; Stop 08/08/20 at 08:42; Status DC Heparin Sodium (Porcine) (Heparin Sodium) 10,000 unit STK-MED ONCE .ROUTE ; Start 08/08/20 at 08:42; Stop 08/08/20 at 08:42; Status DC Verapamil HCl (Verapamil) 5 mg STK-MED ONCE .ROUTE ; Start 08/08/20 at 08:42; Stop 08/08/20 at 08:42; Status DC Nitroglycerin (Nitroglycerin) 200 mcg STK-MED ONCE .ROUTE ; Start 08/08/20 at 08:42; Stop 08/08/20 at 08:42; Status DC Nitroglycerin (Nitrostat) 0.4 mg STK-MED ONCE SL ; Start 08/08/20 at 08:58; Stop 08/08/20 at 08:59; Status DC Tirofiban/Sodium Chloride 100 ml @ As Directed STK-MED ONCE IV ; Start 08/08/20 at 09:08; Stop 08/08/20 at 09:08; Status DC Nitroglycerin (Nitroglycerin) 200 mcg 1X ONCE IART Last administered on 08/08/20at 09:39; Start 08/08/20 at 09:30; Stop 08/08/20 at 09:32; Status DC Verapamil HCl (Verapamil) 2.5 mg 1X ONCE IART Last administered on 08/08/20at 09:40; Start 08/08/20 at 09:30; Stop 08/08/20 at 09:32; Status DC Heparin Sodium (Porcine) (Heparin Sodium) 2,500 unit 1X ONCE IART Last administered on 08/08/20at 09:41; Start 08/08/20 at 09:30; Stop 08/08/20 at 09:32; Status DC Heparin Sodium/ Sodium Chloride (HEPARIN for ARTERIAL LINE FLUSH) 1,000 unit 1X ONCE IART Last administered on 08/08/20at 09:38; Start 08/08/20 at 09:30; Stop 08/08/20 at 09:32; Status DC Heparin Sodium/ Sodium Chloride (HEPARIN for ARTERIAL LINE FLUSH) 1,000 unit 1X ONCE IART Last administered on 08/08/20at 09:38; Start 08/08/20 at 09:30; Stop 08/08/20 at 09:32; Status DC Midazolam HCl (Versed) 2 mg 1X ONCE IV Last administered on 08/08/20at 09:40; Start 08/08/20 at 09:30; Stop 08/08/20 at 09:32; Status DC Fentanyl Citrate (Fentanyl 2ml Vial) 100 mcg 1X ONCE IV Last administered on 08/08/20at 09:40; Start 08/08/20 at 09:30; Stop 08/08/20 at 09:32; Status DC Iohexol (Omnipaque 300 Mg/ml) 100 ml 1X ONCE IART Last administered on 08/08/20at 09:38; Start 08/08/20 at 09:30; Stop 08/08/20 at 09:32; Status DC Tirofiban/Sodium Chloride 100 ml @ 0 mls/hr CONT PRN IV PER PROTOCOL Last administered on 08/08/20at 09:15; Start 08/08/20 at 09:15 Lidocaine HCl (Xylocaine-Mpf 1% 2ml Vial) 2 ml 1X ONCE INJ Last administered on 08/08/20at 09:39; Start 08/08/20 at 09:30; Stop 08/08/20 at 09:32; Status DC Nitroglycerin (Nitroglycerin) 200 mcg 1X ONCE ICAR Last administered on 08/08/20at 09:39; Start 08/08/20 at 09:30; Stop 08/08/20 at 09:32; Status DC Sodium Chloride 1,000 ml @ 100 mls/hr 1X ONCE IV Last administered on 08/08/20at 09:17; Start 08/08/20 at 09:30; Stop 08/08/20 at 19:29 Heparin Sodium (Porcine) (Heparin Sodium) 1,000 unit 1X ONCE IV Last administered on 08/08/20at 09:41; Start 08/08/20 at 09:30; Stop 08/08/20 at 09:32; Status DC Prasugrel (Effient) 60 mg 1X ONCE PO Last administered on 08/08/20at 09:40; Start 08/08/20 at 09:30; Stop 08/08/20 at 09:32; Status DC Prasugrel (Effient) 10 mg STK-MED ONCE .ROUTE ; Start 08/08/20 at 09:33; Stop 08/08/20 at 09:33; Status DC Nitroglycerin (Nitroglycerin) 200 mcg STK-MED ONCE .ROUTE ; Start 08/08/20 at 09:33; Stop 08/08/20 at 09:33; Status DC Active Scripts Active Reported Aspirin 325 Mg Tablet 1 Tab PO DAILY Androgel (Testosterone) 5 Gm Gel.packet 1 Packet TP DAILY Triamterene-Hctz 37.5-25 Mg Tb (Triamterene/Hydrochlorothiazid) 1 Each Tablet 1 Tab PO DAILY Lisinopril 20 Mg Tablet 1 Tab PO DAILY Vitals/I & O Vital Sign - Last 24 Hours 08/07/20 08/07/20 08/07/20 08/07/20 14:55 15:57 19:00 20:00 Temp 98.4 97.9 98.4 97.9 Pulse 81 81 71 Resp 18 18 B/P (MAP) 119/77 (91) 119/77 115/75 (88) Pulse Ox 98 98 O2 Delivery Room Air Room Air Room Air 08/07/20 08/07/20 08/07/20 08/08/20 22:32 22:32 23:16 03:21 Temp 98.0 98.0 98.0 98.0 Pulse 71 66 62 Resp 19 19 B/P (MAP) 115/75 138/81 (100) 114/71 (85) Pulse Ox 99 98 O2 Delivery Room Air Room Air Room Air 08/08/20 08/08/20 08/08/20 08/08/20 03:39 07:00 08:00 09:38 Temp 97.7 97.7 Pulse 66 Resp 20 B/P (MAP) 104/62 (76) 154/100 Pulse Ox 92 O2 Delivery Room Air Nasal Cannula Room Air O2 Flow Rate 1.0 08/08/20 08/08/20 08/08/20 08/08/20 09:40 09:40 10:50 11:56 Temp 97.6 97.6 Pulse 59 57 62 Resp 15 16 B/P (MAP) 135/99 (111) 115/82 Pulse Ox 99 98 O2 Delivery Nasal Cannula Room Air O2 Flow Rate 2.0 08/08/20 12:25 Pulse Ox 98 O2 Delivery Room Air O2 Flow Rate 2.0 Intake and Output 08/07/20 08/07/20 08/08/20 15:00 23:00 07:00 Intake Total 840 ml 620 ml 200 ml Output Total 500 ml Balance 840 ml 620 ml -300 ml Justicifation of Admission Dx: Justifications for Admission: Justification of Admission Dx: Yes LOW BELLA MD Aug 08, 2020 13:51
[2020-08-09 03:15] VITALS: BP 109/62
[2020-08-09 07:09] VITALS: BP 129/73
[2020-08-09] MEDS: ASPIRIN 325 MG TABLET PO SCH (07:50)
[2020-08-09] MEDS: TRIAMTERENE/HCTZ 37.5/25MG TABLET. PO SCH (07:50)
[2020-08-09 07:51] VITALS: BP 129/73
[2020-08-09] MEDS: LISINOPRIL 20 MG TABLET PO SCH (07:51)
[2020-08-09] MEDS ORDERED: PRAS10TA9 PO (10:12)
[2020-08-09] MEDS ORDERED: METO25TA4 PO (10:12)
[2020-08-09] MEDS ORDERED: ATOR40TA59 PO (10:12)
[2020-08-09] MEDS ORDERED: NITR0.4T24 SL (10:12)
--- NOTE | 2020-08-09 10:15 | PDOC3 ---
Discharge Summary Visit Information Date of Admission: Aug 07, 2020 Date of Discharge: Aug 09, 2020 Admitting Diagnosis Comment: Assessment/Plan Chest pain with elevated troponin. NSTEMI currently asymptomatic, cardiology will do a PCI in the am Hypertension Borderline morbid obesity with BMI of 39 Final Diagnosis Problems Medical Problems: (1) Chest pain Status: Acute ACS confirmed with PCI status post stent placement. Two-vessel coronary artery disease Successful complex PCI of the left circumflex with implantation of a 3.0 x 22 mm resolute drug-eluting stent. NSTEMI Hypertension Borderline morbid obesity with BMI of 39 Brief Hospital Course Allergies Allergies Coded Allergies Type Severity Reaction Last Updated Verified No Known Drug Allergies 08/06/20 No Vital Signs Vital Signs Date Time Temp Pulse Resp B/P (MAP) Pulse Ox O2 Delivery O2 Flow Rate FiO2 08/09/20 07:51 61 129/73 08/09/20 07:09 97.7 16 98 Room Air 97.7 08/08/20 20:00 2.0 Lab Results Laboratory Tests Test 08/07/20 15:50 08/07/20 21:51 08/08/20 04:08 08/08/20 09:05 Heparin Anti-Xa Act, Unfractionated 0.72 IU/mL (0.30-0.70) 0.53 IU/mL (0.30-0.70) 0.57 IU/mL (0.30-0.70) White Blood Count 5.9 x10^3/uL (4.0-11.0) Red Blood Count 4.34 x10^6/uL (4.30-5.70) Hemoglobin 13.7 g/dL (13.0-17.5) Hematocrit 39.6 % (39.0-53.0) Mean Corpuscular Volume 91 fL (79-100) Mean Corpuscular Hemoglobin 32 pg (25-35) Mean Corpuscular Hemoglobin Concent 35 g/dL (31-37) Red Cell Distribution Width 13.8 % (11.5-14.5) Platelet Count 191 x10^3/uL (140-400) Activated Clotting Time 209 sec (92-181) Brief Hospital Course History of Present Illness Patient is a 70 year old male with past medical history of hypertension who was in his usual state of health until the day of his admission when he presented precordaiol pain that he describes as a pressure like sensation with no radi ation to the neck or arms. Patient denies cough sputum production no fever or chills, no sensation of impending doom associated with the discomfort. Patient denies shortnes of breath no PND, no palpitations, no nausea vomiting or diarrhea. he denies having similar symptoms in the past, patient denies recent dietary transgression, no recent illness and no sick contacts have been rep orted. At the time of this note the patient is in no apparent distress, no further chest pain has been reported, plan of care discussed in detail. All concerns addressed to the best of my abilities. 08/08: No acute events reported overnight, case discussed with nursing staff patient in no acute distress no complaints during my visit PCI results was noted, reassurance provided to the patient 08/09: No acute events reported overnight, case discussed with nursing staff patient in no acute distress no complaints during my visit, discussed with client experience consultant and final recommendations noted. Patient will be started on a beta-ann his Maxide is going to be discontinued and he will continue with lisinopril 20 mg daily. Patient will be given also given a prescription for nitroglycerin just in case he presents angina type of symptoms and the signs and symptoms of concern when to seek medical attention were discussed prior to discharge. Patient is in good spirits to be going home all of his concerns were addressed to the best of my abilities. Cardiac rehab has been ordered and he will be following up with cardiology in approximately 1 month, I have also encouraged him to follow-up with his primary care physician Physical Exam General: Alert, Oriented X3, Cooperative, No acute distress Heart: Regular rate, Normal S1, Normal S2 Lungs: Clear Abdomen: Soft, No tenderness Extremities: No edema Skin: No significant lesion Discharge Information Condition at Discharge: Improved Follow Up: Weeks Disposition/Orders: D/C to Home Scheduled Aspirin (Aspirin) 325 Mg Tablet, 1 TAB PO DAILY for preventative, #30 Ref 5 (Reported) Entered as Reported by: OMI ESCALANTE on 08/07/20 0126 Last Action: Continued on 08/07/20 1036 by LOW BELLA MD Atorvastatin Calcium (Atorvastatin Calcium) 40 Mg Tablet, 1 TAB PO DAILY for CAD, #30 Ref 5 Prescribed by: LOW BELLA MD on 08/09/20 1012 Lisinopril (Lisinopril) 20 Mg Tablet, 1 TAB PO DAILY for blood pressure, #30 Ref 5 (Reported) Entered as Reported by: OMI ESCALANTE on 08/07/20125 Last Action: Continued on 08/07/201035 by LOW BELLA MD Metoprolol Tartrate (Metoprolol Tartrate) 25 Mg Tablet, 0.5 TAB PO BID for CAD, #180 Ref 1 Prescribed by: LOW BELLA MD on 08/09/20 1012 Prasugrel Hcl (Effient) 10 Mg Tablet, 1 TAB PO DAILY for CAD, #90 Ref 1 Prescribed by: LOW BELLA MD on 08/09/20 1012 Testosterone (Androgel) 5 Gm Gel.packet, 1 PACKET TP DAILY for supplement, #30 Ref 5 (Reported) Entered as Reported by: OMI ESCALANTE on 08/07/20125 Last Action: HELD on 08/07/201034 by LOW BELLA MD Scheduled PRN Nitroglycerin (Nitrostat) 0.4 Mg Tab.subl, 0.4 MG SL PRN Q5MIN PRN for CHEST PAIN for 30 Days, #25 Prescribed by: LOW BELLA MD on 08/09/20 1012 Discontinued Medications Triamterene/Hydrochlorothiazid (Triamterene-Hctz 37.5-25 Mg Tb) 1 Each Tablet, 1 TAB PO DAILY for blood pressure, #30 Ref 5 (Reported) Entered as Reported by: OMI ESCALANTE on 08/07/20125 Last Action: Continued on 08/07/201035 by LOW BELLA MD Justicifation of Admission Dx: Justifications for Admission: Justification of Admission Dx: Yes LOW BELLA MD Aug 09, 2020 10:15
[2020-08-09] MEDS ORDERED: ASPI-886 PO (10:29)
--- NOTE | 2020-08-09 11:43 | PDOC ---
JANEL LAWTON APPEALS AND GENERALIST CLERK 08/09/20 1143: CARDIO Progress Notes Date and Time Date of Service 08/09/2020 Time of Evaluation 0940 Subjective Subjective: No Chest Pain, No shortness of breath, No Palpitations Vitals Vitals Vital Signs Date Time Temp Pulse Resp B/P (MAP) Pulse Ox O2 Delivery O2 Flow Rate FiO2 08/09/20 08:00 Room Air 08/09/20 07:51 61 129/73 08/09/20 07:09 97.7 16 98 97.7 08/08/20 20:00 2.0 Weight Weight [ ] Input and Output Intake and Output Intake and Output 08/09/20 07:00 Intake Total 1580 ml Balance 1580 ml Intake Oral 1580 ml # Voids 5 Physical Exam HEENT: Neck Supple W Full Motion Chest: Symmetric LUNGS: Clear to Auscultation Heart: S1S2, RRR (SR) Abdomen: Soft N/T Extremities: No Edema, No Calf Tenderness Neurology: alert, oriented, follow commands Other Exams Right radial arteriotomy site intact, no erythema, swelling and neurovascular status to right hand intact Assessment Assessment 1. NSTEMI: ACS. 2VD per [facility], S/P PCI/BERNARDO to LCx. EF 55% 2. HTN 3. Obesity Recommendations 1. Continue home lisinopril but DC maxide and will place on low dose metoprolol per GDMT. No noted significant bradycardia overnight and BP is controlled 2. Baby ASA with effient. Lipitor 40 mg daily. 3. Cardiac rehab. follow up on Sep [address] Wilkerson Justicifation of Admission Dx: Justifications for Admission: Justification of Admission Dx: Yes ZOE WILKERSON MD 08/09/20 1459: CARDIO Progress Notes Plan Plan The patient was seen and interviewed as well as examined at the bedside. The chart was reviewed. The case was discussed. Agree with the plan of care. JANEL LAWTON APRN Aug 09, 2020 11:43 ZOE WILKERSON MD Aug 09, 2020 14:59
== END 2020-08-09 11:35 | disposition home or self-care (01) | DRG 247 ==
LOC: ER 19:19 → 2 SOUTH 21:41 → 2 NORTH 21:50
PROVIDERS: ADMIT Internal Medicine; ATTEND Internal Medicine
PROC: B2111ZZ Fluoroscopy of Multiple Coronary Arteries using Low Osmolar Contrast (ICD-10-PCS; principal; 2020-08-08)
PROC: 027034Z Dilation of Coronary Artery, One Artery with Drug-eluting Intraluminal Device, Percutaneous Approach (ICD-10-PCS; 2020-08-08)
PROC: B2151ZZ Fluoroscopy of Left Heart using Low Osmolar Contrast (ICD-10-PCS; 2020-08-08)
PROC: 4A023N7 Measurement of Cardiac Sampling and Pressure, Left Heart, Percutaneous Approach (ICD-10-PCS; 2020-08-08)
DX: I21.4 Non-ST elevation (NSTEMI) myocardial infarction (principal); I10 Essential (primary) hypertension; E66.01 Morbid (severe) obesity due to excess calories; Z68.39 Body mass index [BMI] 39.0-39.9, adult; I25.10 Atherosclerotic heart disease of native coronary artery without angina pectoris; Z79.899 Other long term (current) drug therapy; Z82.49 Family history of ischemic heart disease and other diseases of the circulatory system; Z96.653 Presence of artificial knee joint, bilateral; Z98.61 Coronary angioplasty status
CPT/HCPCS: 36415; 71046; 80048; 80061; 84443; 84484; 85025; 85027; 85347; 85520; 92928; 93005; 93306; 93458; 99152; 99153; 99285; C1769; C1874; C1887; C1892; J1644; J2250; J2270; J3010; J3490; J7030; Q9967; C1725; G0378; J3246

== ENCOUNTER → 2020-10-24 | Outpatient (CLI) | payer BC ==
[~2020-10-24] MED LIST: ASPI-886 PO; ASPI325T8 PO; ATOR40TA59 PO; LISI-334 PO; METO25TA4 PO; NITR0.4T24 SL; PRAS10TA9 PO; TEST5GEL TP; TRIA1TAB3 PO
--- NOTE | 2020-10-24 12:06 | RAD ---
Bilateral lower extremity arterial duplex ultrasound 10/24/2020 INDICATION: Peripheral vascular disease. Hypertension. Previous myocardial infarct Discussion: Ultrasound evaluation of the major arteries of the bilateral lower extremities was performed including color Doppler imaging spectral analysis. FINDINGS: Normal waveform morphology and velocities are seen throughout the major arteries of the bilateral lower extremities. No focal elevation of velocity suggestive hemodynamically significant stenosis is seen. No major arterial occlusion is seen. No aneurysm is identified. Significant atherosclerotic plaquing is seen. IMPRESSION: Grossly normal sonographic appearance of the major arteries of the bilateral lower extremities Electronically signed by: Bowen Sun MD (10/24/2020 12:03 PM) [id number]
[2020-10-24 12:47] LABS: CHOLESTEROL/HDL RATIO 2.2
--- NOTE | 2020-10-24 14:40 | RAD ---
History: Reason: PAD; HTN; Previous SD; Hyperlipidemia / Spl. Instructions: / History: Technique: Ultrasound was utilized to calculate an ankle brachial index. Findings: Right: Right brachial pressure 137 mmHg Right ankle pressure 189 mmHg Right ankle ELLIOTT 1.3 Left: Left brachial pressure 142 mmHg Left ankle pressure 189 mmHg Left ankle ELLIOTT 1.3 Impression: Ankle-brachial index is 1.3 bilaterally. This could be secondary to decreased compressibility from calcific atherosclerosis. Electronically signed by: Alejo Aponte MD (10/24/2020 2:37 PM) [id number]
--- NOTE | 2020-10-24 17:02 | RAD ---
Examination: VENOUS REFLUX BILATERAL History: Venous Insufficiency; Leg Edema Comparison/Correlation: None Findings: Lower extremity venous reflux ultrasound examination was performed. Reflux involving the right great saphenous vein extending from the groin to the ankle is seen. Diameter of up to 1.01 cm at the superior aspect is seen and at the distal aspect, diameter of as well as 0.21 cm is evident. Maximum reflux time of 3.2 seconds is seen at the ankle level. Reflux times are mostly 2.2 seconds and longer. Reflux involving the left great saphenous vein extending from the groin to distal thigh is noted with times of 2.4 seconds up to 2.8 seconds. Maximum diameter of 1.6 cm of the left great saphenous vein superiorly is present. At the calf level, tortuous left great saphenous vein with chronic-appearing clot is noted at multiple sites. 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 Impression: Significant bilateral great saphenous vein reflux is present. Clot involving the left great saphenous vein at the calf level is seen with notable tortuosity. There is significant left ankle precipitate washer vein reflux noted. Electronically signed by: Frantz Shell MD (10/24/2020 5:00 PM) [id number]
== END ==
LOC: US 09:40
PROVIDERS: ATTEND Internal Medicine Cardiovascular Disease
DX: I87.2 Venous insufficiency (chronic) (peripheral) (principal); E78.5 Hyperlipidemia, unspecified; R60.0 Localized edema; I73.9 Peripheral vascular disease, unspecified; I10 Essential (primary) hypertension
CPT/HCPCS: 36415; 80061; 83721; 83880; 93922; 93925; 93970